=== PATIENT | female | born 1990 | race African-American/Black ===

== ENCOUNTER 2022-09-30 21:55 | Emergency (ER) | payer BC, OTHER ==
[2022-09-30 22:05] VITALS: BP 134/99
[2022-09-30 22:15] VITALS: BP 131/95
[2022-09-30 22:30] VITALS: BP 125/89
[2022-09-30] MEDS ORDERED: CLARITIN10 M2 PO (23:18)
[2022-09-30] MEDS ORDERED: AMOXICILLIN500 MG PO (23:18)
[2022-09-30 23:23] VITALS: BP 125/89
== END 2022-09-30 23:37 | disposition home or self-care (01) | DRG 153 ==
LOC: ED 21:55
DX: J02.9 Acute pharyngitis, unspecified (principal)

== ENCOUNTER 2023-01-15 11:25 | Emergency (ER) | payer BC, OTHER ==
[~2023-01-15 11:25] MED LIST: AMOXICILLIN500 MG PO; CEPHALEXIN500 M1 PO; CLARITIN10 M2 PO; LEXAPRO10 MG PO; ONDANSETRON4 MG PO; PEPCID20 MG PO; PHENERGAN25 MG/TAB PO; ROBITUSSIN AC10 ML PO; VOLTAREN - GENE75 MG PO; ZOFRAN ODT4 MG PO; ZOFRAN4 MG/TAB PO
[2023-01-15 11:30] VITALS: BP 148/97
[2023-01-15 12:00] VITALS: BP 140/113
[2023-01-15 12:03] LABS: BASO% 0.1 % (0-3); EOS% 0.5 % (0-8); HEMATOCRIT 40.6 % (37.0-47.0); HEMOGLOBIN 13.6 g/dl (12.0-16.0); IMMATURE GRANULOCYTES 0.2 % (0.0-5.0); LYMPH% 4.4 % (15-41); MEAN CELL VOLUME 86.2 fL CALC (80.0-100.0); MEAN CORPUSCULAR HGB 28.9 pG CALC (26.0-32.0); MEAN CORPUSCULAR HGB CONC 33.5 g/dL CAL (32.0-36.0); MONO% 3.8 % (2-13); NEUT# 9.32 thou/uL (2.00-7.15); RED BLOOD COUNT 4.71 mill/uL (4.20-5.60); RED CELL DISTRI WIDTH 13.4 % (11.5-15.5)
[2023-01-15 12:15] VITALS: BP 135/98
[2023-01-15 12:21] LABS: ALBUMIN 5.1 g/dL (3.2-5.0); ALKALINE PHOSPHATASE 62 u/l (38-126); ANION GAP 14 (6-22 (CALC)); BUN 13 mg/dL (7-17); BUN/CREATININE RATIO 20 (12-20 (CALC)); CARBON DIOXIDE 26 mmol/l (22-30); CHLORIDE 107 mmol/l (95-108); CREATININE 0.7 mg/dL (0.5-1.0); GFR FOR AFR.AMER. > 60 ML/MIN (>=60 (CALC)); GFR OTHER RACES > 60 ML/MIN (>=60 (CALC)); LIPASE 37 u/l (23-300); POTASSIUM 4.4 mmol/l (3.5-5.1); SGOT/AST 29 u/l (14-36); SODIUM 142 mmol/l (137-146)
[2023-01-15 12:22] LABS: BILIRUBIN, TOTAL 0.7 mg/dL (0.02-1.3); TOTAL PROTEIN 8.6 g/dL (6.3-8.2)
[2023-01-15 12:30] VITALS: BP 132/96
[2023-01-15 12:44] LABS: URINE BILIRUBIN - DIPSTICK NEGATIVE (NEGATIVE); URINE BLOOD DIPSTICK NEGATIVE (NEGATIVE); URINE COLOR YELLOW; URINE GLUCOSE - DIPSTICK NEGATIVE (NEGATIVE); URINE KETONE 40 mg/dL (NEGATIVE); URINE LEUK ESTERASE NEGATIVE (NEGATIVE); URINE PH 5.5 (4.5-8.0); URINE PROTEIN - DIPSTICK NEGATIVE (NEG-TRACE); URINE SPECIFIC GRAVITY >=1.030; URINE UROBILINOGEN - DIPSTICK 0.2 E.U./dL (0.2)
[2023-01-15 12:45] LABS: URINE NITRITE - DIPSTICK NEGATIVE (Negative)
[2023-01-15 13:15] VITALS: BP 136/94
[2023-01-15] MEDS ORDERED: DICYCLOMINE10 MG PO (14:50)
[2023-01-15] MEDS ORDERED: ZOFRAN4 MG/TAB PO (14:50)
[2023-01-15] MEDS ORDERED: LOMOTIL2.5 MG PO (14:50)
[2023-01-15 15:42] VITALS: BP 136/94
== END 2023-01-15 15:55 | disposition home or self-care (01) | DRG 392 ==
LOC: ED 11:25
PROVIDERS: Family Medicine
DX: R11.2 Nausea with vomiting, unspecified (principal); K51.90 Ulcerative colitis, unspecified, without complications; R19.7 Diarrhea, unspecified; R10.9 Unspecified abdominal pain
CPT/HCPCS: Q9967

== ENCOUNTER 2023-11-06 03:37 | Emergency (ER) | payer BC, OTHER ==
[~2023-11-06] VITALS: Ht 182.9 cm; Wt 68.0 kg
[~2023-11-06 03:37] MED LIST changes: +DICYCLOMINE10 MG PO; +LOMOTIL2.5 MG PO
[2023-11-06 03:45] VITALS: BP 153/99
[2023-11-06] MEDS ORDERED: EFFEXOR XR75 MG/CAP PO (03:49)
[2023-11-06 04:31] VITALS: BP 149/120
[2023-11-06 04:33] VITALS: BP 154/122
[2023-11-06 05:34] LABS: URINE BLOOD DIPSTICK Large (NEGATIVE); URINE GLUCOSE - DIPSTICK Negative (NEGATIVE); URINE KETONE Trace mg/dL (NEGATIVE); URINE LEUK ESTERASE Negative (NEGATIVE); URINE NITRITE - DIPSTICK Negative (Negative); URINE PH 5.5 (4.5-8.0); URINE PROTEIN - DIPSTICK 30 mg/dL (NEG-TRACE); URINE SPECIFIC GRAVITY 1.025; URINE UROBILINOGEN - DIPSTICK 0.2 E.U./dL (0.2)
[2023-11-06 05:37] LABS: BASO% 0.6 % (0-3); EOS% 0.8 % (0-8); HEMATOCRIT 36.2 % (37.0-47.0); HEMOGLOBIN 12.4 g/dl (12.0-16.0); IMMATURE GRANULOCYTES 0.2 % (0.0-5.0); LYMPH% 15.2 % (15-41); MEAN CELL VOLUME 84.4 fL CALC (80.0-100.0); MEAN CORPUSCULAR HGB 28.9 pG CALC (26.0-32.0); MEAN CORPUSCULAR HGB CONC 34.3 g/dL CAL (32.0-36.0); MONO% 6.5 % (2-13); NEUT# 7.63 thou/uL (2.00-7.15); NEUT% 76.7 % (42-76); RED BLOOD COUNT 4.29 mill/uL (4.20-5.60); RED CELL DISTRI WIDTH 13.7 % (11.5-15.5)
[2023-11-06 05:38] LABS: ALBUMIN 4.4 g/dL (3.2-5.0); ALKALINE PHOSPHATASE 76 u/l (38-126); BILIRUBIN, TOTAL 0.6 mg/dL (0.02-1.3); BUN 10 mg/dL (7-17); BUN/CREATININE RATIO 14 (12-20 (CALC)); CHLORIDE 111 mmol/l (95-108); CREATININE 0.7 mg/dL (0.5-1.0); GFR FOR AFR.AMER. > 60 ML/MIN (>=60 (CALC)); GFR OTHER RACES > 60 ML/MIN (>=60 (CALC)); LIPASE 42 u/l (23-300); POTASSIUM 4.6 mmol/l (3.5-5.1); SGOT/AST 28 u/l (14-36); SODIUM 141 mmol/l (137-146); TOTAL PROTEIN 7.8 g/dL (6.3-8.2)
[2023-11-06 05:41] LABS: URINE COLOR Yellow
[2023-11-06 05:42] LABS: URINE BILIRUBIN - DIPSTICK Negative (NEGATIVE)
[2023-11-06 05:43] LABS: URINE BACTERIA FEW hpf; URINE EPITHELIAL CELLS FEW EPI/hpf (0-FEW); URINE MUCUS FEW hpf (NONE-FEW); URINE RBC >100 RBC/hpf (0-5)
[2023-11-06 05:44] LABS: ANION GAP 16 (6-22 (CALC)); CARBON DIOXIDE 19 mmol/l (22-30)
[2023-11-06] MEDS ORDERED: ONDANSETRON ODT8 MG PO (07:34)
[2023-11-06] MEDS ORDERED: DICLOFENAC75 MG PO (07:34)
[2023-11-06 07:58] VITALS: BP 154/98
== END 2023-11-06 07:58 | disposition home or self-care (01) | DRG 392 ==
LOC: ED 03:37
PROVIDERS: Internal Medicine
DX: R10.9 Unspecified abdominal pain (principal); R11.2 Nausea with vomiting, unspecified; R19.7 Diarrhea, unspecified

== ENCOUNTER 2023-12-28 18:45 | Emergency (ER) | payer BC, OTHER ==
[~2023-12-28] VITALS: Ht 182.9 cm; Wt 70.3 kg
[~2023-12-28 18:45] MED LIST changes: +DICLOFENAC75 MG PO; +EFFEXOR XR75 MG/CAP PO; +ONDANSETRON ODT8 MG PO
[2023-12-28] MEDS ORDERED: ONDANSETRON 4 MG/TAB ODT SL ONE (19:05)
[2023-12-28 19:14] VITALS: BP 139/87
[2023-12-28] MEDS ORDERED: SODIUM CHLORIDE 0.9% 1,000 ML IV ONE (19:25)
[2023-12-28 19:26] LABS: BASO% 0.2 % (0-3); HEMATOCRIT 34.6 % (37.0-47.0); HEMOGLOBIN 11.9 g/dl (12.0-16.0); IMMATURE GRANULOCYTES 0.2 % (0.0-5.0); MEAN CELL VOLUME 83.8 fL CALC (80.0-100.0); MEAN CORPUSCULAR HGB 28.8 pG CALC (26.0-32.0); MEAN CORPUSCULAR HGB CONC 34.4 g/dL CAL (32.0-36.0); MONO% 6.6 % (2-13); NEUT# 15.43 thou/uL (2.00-7.15); RED BLOOD COUNT 4.13 mill/uL (4.20-5.60); RED CELL DISTRI WIDTH 14.1 % (11.5-15.5)
[2023-12-28 19:28] LABS: URINE BILIRUBIN - DIPSTICK Negative (NEGATIVE); URINE BLOOD DIPSTICK Large (NEGATIVE); URINE COLOR Yellow; URINE GLUCOSE - DIPSTICK Negative (NEGATIVE); URINE KETONE 80 mg/dL (NEGATIVE); URINE LEUK ESTERASE Trace (NEGATIVE); URINE NITRITE - DIPSTICK Negative (Negative); URINE PROTEIN - DIPSTICK 30 mg/dL (NEG-TRACE); URINE SPECIFIC GRAVITY 1.025; URINE UROBILINOGEN - DIPSTICK 0.2 E.U./dL (0.2)
[2023-12-28 19:31] VITALS: BP 150/127
[2023-12-28 19:36] LABS: URINE RBC 0-2 RBC/hpf (0-5); URINE WBC 0-2 WBC/hpf (0-5)
[2023-12-28 19:37] LABS: URINE SQUAMOUS EPITHELIAL CELL FEW EPI/hpf (0-FEW)
[2023-12-28 19:42] LABS: ALBUMIN 4.7 g/dL (3.2-5.0); ALKALINE PHOSPHATASE 74 u/l (38-126); ANION GAP 14 (6-22 (CALC)); BILIRUBIN, TOTAL 0.6 mg/dL (0.02-1.3); BUN 16 mg/dL (7-17); BUN/CREATININE RATIO 21 (12-20 (CALC)); CHLORIDE 109 mmol/l (95-108); CREATININE 0.8 mg/dL (0.5-1.0); GFR FOR AFR.AMER. > 60 ML/MIN (>=60 (CALC)); GFR OTHER RACES > 60 ML/MIN (>=60 (CALC)); LIPASE 36 u/l (23-300); POTASSIUM 4.1 mmol/l (3.5-5.1); SGOT/AST 30 u/l (14-36); SODIUM 142 mmol/l (137-146)
[2023-12-28 19:43] LABS: CARBON DIOXIDE 23 mmol/l (22-30)
[2023-12-28] MEDS ORDERED: LIDOcaine HCl 1% (Local Anesth.) 20 ML VIAL IM STA (20:23)
[2023-12-28] MEDS ORDERED: cefTRIAXone SODIUM 1 GM/VIAL SDV IM ONE (20:25)
[2023-12-28] MEDS ORDERED: KETOROLAC TROMETHAMINE 30 MG/ML SDV IM ONE (20:25)
[2023-12-28 21:09] VITALS: BP 150/127
== END 2023-12-28 21:11 | disposition home or self-care (01) | DRG 760 ==
LOC: ED 18:45
PROVIDERS: Family Medicine
DX: N94.6 Dysmenorrhea, unspecified (principal); N39.0 Urinary tract infection, site not specified; K51.90 Ulcerative colitis, unspecified, without complications; Z72.0 Tobacco use

== ENCOUNTER 2024-08-17 21:24 | Emergency (ER) | payer BC, OTHER ==
[2024-08-18] MEDS ORDERED: HYDROXYZ HCL25 MG PO (08:02)
[2024-08-18] MEDS ORDERED: TRAMADOL HYDROC50 M1 PO (12:40)
== END 2024-08-17 22:01 | disposition left against medical advice (07) | DRG 951 ==
LOC: ED 21:24 → LWOBS 22:00
DX: Z53.21 Procedure and treatment not carried out due to patient leaving prior to being seen by health care provider (principal)

== ENCOUNTER 2024-08-18 07:47 | Emergency (ER) | payer BC ==
[~2024-08-18] VITALS: Ht 182.9 cm; Wt 78.0 kg
[2024-08-18] MEDS ORDERED: ONDANSETRON HCl 4 MG/2 ML SDV IV ONE ×2 (07:55→10:35)
[2024-08-18] MEDS ORDERED: SODIUM CHLORIDE 0.9% 1,000 ML IV ONE (07:55)
[2024-08-18 07:56] VITALS: BP 143/113
[2024-08-18 08:00] VITALS: BP 145/103
[2024-08-18] MEDS ORDERED: KETOROLAC TROMETHAMINE 30 MG/ML SDV IV ONE (08:00)
[2024-08-18] MEDS ORDERED: HYDROXYZ HCL25 MG PO (08:02)
[2024-08-18 08:15] LABS: BASO% 0.3 % (0-3); HEMATOCRIT 37.8 % (37.0-47.0); HEMOGLOBIN 12.9 g/dl (12.0-16.0); IMMATURE GRANULOCYTES 0.2 % (0.0-5.0); LYMPH% 6.6 % (15-41); MEAN CELL VOLUME 85.3 fL CALC (80.0-100.0); MEAN CORPUSCULAR HGB 29.1 pG CALC (26.0-32.0); MEAN CORPUSCULAR HGB CONC 34.1 g/dL CAL (32.0-36.0); MONO% 4.2 % (2-13); NEUT% 88.7 % (42-76); RED BLOOD COUNT 4.43 mill/uL (4.20-5.60); RED CELL DISTRI WIDTH 12.6 % (11.5-15.5)
[2024-08-18 08:32] LABS: URINE BLOOD DIPSTICK Large (NEGATIVE); URINE GLUCOSE - DIPSTICK Negative (NEGATIVE); URINE KETONE >=160 mg/dL (NEGATIVE); URINE LEUK ESTERASE Negative (NEGATIVE); URINE NITRITE - DIPSTICK Negative (Negative); URINE PH 5.5 (4.5-8.0); URINE PROTEIN - DIPSTICK 100 mg/dL (NEG-TRACE); URINE SPECIFIC GRAVITY >=1.030; URINE UROBILINOGEN - DIPSTICK 0.2 E.U./dL (0.2)
[2024-08-18 08:35] LABS: BILIRUBIN, TOTAL 0.8 mg/dL (0.02-1.3); CREATININE 0.8 mg/dL (0.5-1.0); TOTAL PROTEIN 8.8 g/dL (6.3-8.2)
[2024-08-18 08:39] LABS: URINE COLOR Dark yellow
[2024-08-18 08:45] LABS: URINE RBC >100 RBC/hpf (0-5); URINE SQUAMOUS EPITHELIAL CELL FEW EPI/hpf (0-FEW); URINE WBC 0-2 WBC/hpf (0-5)
[2024-08-18] MEDS ORDERED: HYDROmorphone HCL 2 MG/AMP IV ONE (10:15)
[2024-08-18 10:36] VITALS: BP 153/104
[2024-08-18 11:00] VITALS: BP 138/83
[2024-08-18] MEDS ORDERED: TRAMADOL HYDROC50 M1 PO (12:40)
[2024-08-18 12:53] VITALS: BP 138/83
== END 2024-08-18 13:08 | disposition home or self-care (01) | DRG 392 ==
LOC: ED 07:47
PROVIDERS: Family Medicine
DX: R10.33 Periumbilical pain (principal); R10.30 Lower abdominal pain, unspecified; F41.9 Anxiety disorder, unspecified; F32.A Depression, unspecified; Z72.0 Tobacco use